=== PATIENT | male | born 1965 | race American Indian/Alaskan Native ===

== ENCOUNTER 2019-03-18 09:51 | Emergency (ER) | payer OTHER ==
[2019-03-18] MEDS ORDERED: PERCOCET 5/325 PO ONE (11:56)
--- NOTE | 2019-03-18 12:12 | Emergency Department Report ---
HPI <MARIEL BILLS Anamaria - Last Filed: 03/18/19 17:41> - HPI HPI: 53-year-old -[place] male presents to the emergency department with complaint of low back pain and left hip pain. Overall this is been going on for the past month, but it greatly worsened since this morning. He was seen at the [facility] previously for the symptoms and was placed on Tylenol and diclofenac, which he has been taking without any relief. He denies any problems with bowel or bladder, numbness or paresthesias or any neurological deficits. The pain worsens with any type of movement and it makes it difficult for him to ambulate or move around. He has a past medical history of diabetes, osteoarthritis. He has severe osteoarthritis of the knees and walks with a cane. He denies any recent trauma or injury. <BEVERLY LAZCANO S - Last Filed: 03/19/19 10:22> - General Chief Complaint: Extremity Injury, Lower Time Seen by Provider: 03/18/19 11:55 ED Past Medical Hx <MARIEL BILLS Anamaria - Last Filed: 03/18/19 17:41> - Past Medical History Previous Medical History?: Yes Hx Diabetes: Yes Additional medical history: OA, titanium plate in neck, chipped bone in hip, "bone on bone knees", depression - Surgical History Past Surgical History?: Yes Additional Surgical History: titanium plate in neck, - Social History Smoking Status: Current Some Day Smoker Substance Use Type: None <BEVERLY LAZCANO Estiven - Last Filed: 03/19/19 10:22> - Medications Home Medications: Home Medications Medication Instructions Recorded Confirmed Last Taken Type Cyclobenzaprine [Flexeril] 10 mg PO TID PRN #12 tablet 03/18/19 Unknown Rx ED Review of Systems ROS: Stated complaint: BACK PAIN Other details as noted in HPI <MARIEL BILLS - Last Filed: 03/18/19 17:41> ROS: Stated complaint: BACK PAIN Other details as noted in HPI Comment: All other systems reviewed and negative Constitutional: denies: chills, fever Respiratory: denies: cough, shortness of breath Cardiovascular: denies: chest pain, palpitations Gastrointestinal: denies: abdominal pain, nausea Genitourinary: denies: dysuria, hematuria Musculoskeletal: back pain, arthralgia. denies: joint swelling Neurological: denies: numbness, paresthesias <BEVERLY LAZCANO S - Last Filed: 03/19/19 10:22> Physical Exam - Physical Exam Vital Signs: Vital Signs 03/18/19 03/18/19 03/18/19 09:58 10:26 17:39 Temperature 97.6 F 97.5 F L 98.2 F Pulse Rate 85 85 81 Respiratory 16 16 16 Rate Blood Pressure 137/77 134/72 [Left] O2 Sat by Pulse 100 100 Oximetry <MARIEL BILLS A - Last Filed: 03/18/19 17:41> - Physical Exam Vital Signs: Vital Signs 03/18/19 03/18/19 09:58 10:26 Temperature 97.6 F 97.5 F L Pulse Rate 85 85 Respiratory 16 16 Rate Blood Pressure 137/77 [Left] O2 Sat by Pulse 100 100 Oximetry Physical Exam: GENERAL: The patient is well-developed well-nourished. HENT: Normocephalic. Atraumatic. Patient has moist mucous membranes. EYES: Extraocular motions are intact. Pupils equal reactive to light bilaterally. NECK: Supple. Trachea is midline. CHEST/LUNGS: Clear to auscultation. There is no respiratory distress noted. HEART/CARDIOVASCULAR: Regular. There is no tachycardia. There is no murmur. ABDOMEN: Abdomen is soft, nontender. Patient has normal bowel sounds. There is no abdominal distention. SKIN: Skin is warm and dry. NEURO: The patient is awake, alert, and oriented. The patient is cooperative. The patient has no focal neurologic deficits. Normal speech. MUSCULOSKELETAL: There is no tenderness or deformity. There is no evidence of acute injury. BACK: Unable to reproduce lumbar midline and left paraspinal tenderness to palpation. No obvious step-off or deformity. <BEVERLY LAZCANO S - Last Filed: 03/19/19 10:22> ED Course Vital Signs 03/18/19 03/18/19 03/18/19 09:58 10:26 17:39 Temperature 97.6 F 97.5 F L 98.2 F Pulse Rate 85 85 81 Respiratory 16 16 16 Rate Blood Pressure 137/77 134/72 [Left] O2 Sat by Pulse 100 100 Oximetry <MARIEL BILLS A - Last Filed: 03/18/19 17:41> Vital Signs 03/18/19 03/18/19 09:58 10:26 Temperature 97.6 F 97.5 F L Pulse Rate 85 85 Respiratory 16 16 Rate Blood Pressure 137/77 [Left] O2 Sat by Pulse 100 100 Oximetry <JALEESABEVERLY Jean-Baptiste - Last Filed: 03/19/19 10:22> ED Medical Decision Making - Lab Data Result diagrams: 03/18/19 12:03 03/18/19 12:03 - Radiology Data Radiology results: report reviewed, image reviewed - Medical Decision Making XRAY NEG CT NEG MEDICATED FOR PAIN AMBULATORY DC HOME WITH FOLLOW UP PER DC SUMMARY Labs 03/18/19 03/18/19 03/18/19 12:03 12:03 16:16 WBC 9.8 RBC 5.09 H Hgb 16.0 H Hct 46.5 H MCV 92 MCH 31 MCHC 34 RDW 12.5 L Plt Count 275 Lymph % (Auto) 30.7 Hughes % (Auto) 6.0 Eos % (Auto) 3.2 Baso % (Auto) 0.6 Lymph # 3.0 Hughes # 0.6 Eos # 0.3 Baso # 0.1 Seg Neutrophils % 59.5 Seg Neutrophils # 5.8 Sodium 138 Potassium 4.2 Chloride 98.3 Carbon Dioxide 27 Anion Gap 17 BUN 11 Creatinine 0.7 L Estimated GFR > 60 BUN/Creatinine Ratio 16 Glucose 226 H Calcium 9.3 Urine Color Yellow Urine Turbidity Slightly-cloudy Urine pH 5.0 Ur Specific [place] 1.038 H Urine Protein <15 mg/dl Urine Glucose (UA) >=500 Urine Ketones Tr Urine Blood Neg Urine Nitrite Neg Urine Bilirubin Neg Urine Urobilinogen < 2.0 Ur Leukocyte Esterase Neg Urine WBC (Auto) 1.0 Urine RBC (Auto) 2.0 U Epithel Cells (Auto) < 1.0 Urine Mucus 3+ Vital Signs 03/18/19 03/18/19 03/18/19 09:58 10:26 17:39 Temperature 97.6 F 97.5 F L 98.2 F Pulse Rate 85 85 81 Respiratory 16 16 16 Rate Blood Pressure 137/77 134/72 [Left] O2 Sat by Pulse 100 100 Oximetry <MARIEL BILLS A - Last Filed: 03/18/19 17:41> - Lab Data Result diagrams: 03/18/19 12:03 03/18/19 12:03 - Radiology Data Radiology results: report reviewed, image reviewed interpreted by me: X-ray of the bilateral hips, pelvis and lumbar spine do not show any fractures, dislocation, subluxation or signs of any acute process. CT LUMBAR SPINE: 03/18/2019 INDICATION / CLINICAL INFORMATION: low back pain. COMPARISON: None available. FINDINGS: CT images of the lumbar spine were obtained. Images are evaluated in the axial, coronal, and sagittal planes. There is no evidence of acute abnormality. Vertebral body height and alignment is normal. LEVEL BY LEVEL ANALYSIS: L5-S1: Mild diffuse disc bulging, slightly more pronounced on the left, with no evidence of nerve root compression or stenosis. L4-5: Minimal diffuse disc bulging. L3-4: Mild diffuse disc bulging. L2-3: Unremarkable. L1-2: Unremarkable. PARASPINAL STRUCTURES: Unremarkable. IMPRESSION: No acute abnormality. Minimal disc bulging with no evidence of stenosis or nerve root compression. - Medical Decision Making This patient presents with some left low back pain and towards the left hip that is atraumatic. He does not have any numbness, paresthesias, problems with bowel or bladder, or any neurological deficits. Labs were unremarkable. An x- ray of the bilateral hips, pelvis and lumbar spine did not show any fracture, dislocation, subluxation, or any other acute process. A CT scan was done that did not show any acute abnormality or etiology of the patient's symptoms. At first, the patient is moving very gingerly. He was given pain medication, then later a muscle relaxer, and does show improvement. He is able to move around and does not appear to be in as much discomfort. The patient is able to ambulate using his cane. Vital signs stable throughout his ED course. Patient appears safe for discharge home at this time. [facility] and I will give him a prescription for a muscle relaxer. He has also been given a referral for an orthopedist and neurosurgeon and may need an MRI in the near future. He is also been instructed to return to the emergency department with any worsening of his symptoms or any acute distress. He does not appear to have any of the emergent conditions such as cauda equina or cord compression syndrome. <BEVERLY LAZCANO - Last Filed: 03/19/19 10:22> Critical care attestation.: If time is entered above; I have spent that time in minutes in the direct care of this critically ill patient, excluding procedure time. <MARIEL BILLS - Last Filed: 03/18/19 17:41> Critical Care Time: No Critical care attestation.: If time is entered above; I have spent that time in minutes in the direct care of this critically ill patient, excluding procedure time. <BEVERLY LAZCANO S - Last Filed: 03/19/19 10:22> ED Disposition Is pt being admited?: No Does the pt Need Aspirin: No Time of Disposition: 17:43 <MARIEL BILLS A - Last Filed: 03/18/19 17:41> Is pt being admited?: No <BEVERLY LAZCANO S - Last Filed: 03/19/19 10:22> Clinical Impression: Low back pain Qualifiers: Chronicity: acute Back pain laterality: left Sciatica presence: with sciatica Sciatica Qualifiers: Laterality: left Qualified Code(s): M54.32 - Sciatica, left side Disposition: TO HOME OR SELFCARE Condition: Stable Instructions: Sciatica (ED), Lumbar Radiculopathy (ED), Back Pain (ED) Additional Instructions: Please follow-up with your primary care physician in the next few days. I am giving him a referral for a local orthopedist, Dr. Gonzalez, and a neurosurgeon, Dr. Brito, to follow up regarding your low back pain and suspected sciatica. Return to the emergency Department with any worsening of your symptoms, especially any numbness, inability to urinate, development of fever, or with any acute distress. You have been prescribed a medication that is sedating and therefore should not be taken prior to driving, working, and responsible for children and in no way should be mixed with alcohol of any quantity. Prescriptions: Cyclobenzaprine [Flexeril] 10 mg PO TID PRN #12 tablet PRN Reason: Muscle Spasm Referrals: PRIMARY CARE, [Primary Care Provider] - 2-3 Days DESTINY GONZALEZ MD [Staff Physician] - 2-3 Days AGUILAR BRITO MD [Staff Physician] - 2-3 Days
[2019-03-18 12:38] LABS: Basophils # (Auto) 0.1 K/mm3 (0.0-0.1); Basophils % (Auto) 0.6 % (0.0-1.8); Eosinophils # (Auto) 0.3 K/mm3 (0.0-0.4); Eosinophils % (Auto) 3.2 % (0.0-4.3); Hematocrit 46.5 % (35.5-45.6); Lymphocytes % (Auto) 30.7 % (13.4-35.0); Mean Corpuscular HGB Conc 34 % (32-34); Mean Corpuscular Volume 92 fl (84-94); Monocytes # (Auto) 0.6 K/mm3 (0.0-0.8); Platelet Count 275 K/mm3 (140-440); Red Blood Count 5.09 M/mm3 (3.65-5.03); Red Cell Distribution Width 12.5 % (13.2-15.2)
--- NOTE | 2019-03-18 12:44 | XRay Report ---
LUMBOSACRAL SPINE, 3 VIEWS INDICATION: low back pain. COMPARISON: None. IMPRESSION: Normal alignment. Mild degenerative disc disease is identified at L3-4. The facet joint s are unremarkable. No acute osseous or soft tissue abnormality. Signer Name: Arnoldo Bacon Jr, MD Signed: 03/18/2019 12:40 PM Workstation Name: [id number]
--- NOTE | 2019-03-18 12:44 | XRay Report ---
Bilateral hips with AP pelvis, 3 views HISTORY: Pelvic and left hip pain. IMPRESSION: Normal bone mineralization. No evidence for fracture, dislocation or diastasis. No osteon ecrosis. The soft tissues are unremarkable. Signer Name: Arnoldo Bacon Jr, MD Signed: 03/18/2019 12:39 PM Workstation Name: [id number]
[2019-03-18 13:03] LABS: BUN/Creatinine Ratio 16; Blood Urea Nitrogen 11 mg/dL (9-20); Calcium 9.3 mg/dL (8.4-10.2); Hemolysis Index 10
[2019-03-18] MEDS ORDERED: FLEXERIL PO ONE (13:57)
[2019-03-18 16:27] LABS: Bilirubin,Urine NEG (Negative); Blood,Urine NEG (Negative); Color,Urine Yellow (Yellow); Mucus,Urine 3+ /HPF; Protein,Urine <15 mg/dL mg/dL (Negative); Urobilinogen,Urine < 2.0 mg/dL (<2.0)
--- NOTE | 2019-03-18 17:38 | Cat Scan Report ---
CT LUMBAR SPINE: 03/18/2019 INDICATION / CLINICAL INFORMATION: low back pain. COMPARISON: None available. FINDINGS: CT images of the lumbar spine were obtained. Images are evaluated in the axial, coronal, and sagitta l planes. There is no evidence of acute abnormality. Vertebral body height and alignment is normal. LEVEL BY LEVEL ANALYSIS: L5-S1: Mild diffuse disc bulging, slightly more pronounced on the left, with no evidence of nerve ro ot compression or stenosis. L4-5: Minimal diffuse disc bulging. L3-4: Mild diffuse disc bulging. L2-3: Unremarkable. L1-2: Unremarkable. PARASPINAL STRUCTURES: Unremarkable. IMPRESSION: No acute abnormality. Minimal disc bulging with no evidence of stenosis or nerve root compression. All CT scans at this location are performed using dose reduction to ALARA by means of automated expos ure control. Signer Name: Irvin Self MD Signed: 03/18/2019 5:34 PM Workstation Name: [id number]
[2019-03-18 17:40] VITALS: BP 134/72
== END 2019-03-18 17:56 | disposition home or self-care (01) ==
LOC: ED 09:51
DX: M54.40 Lumbago with sciatica, unspecified side (principal); M25.552 Pain in left hip; E11.9 Type 2 diabetes mellitus without complications; M19.90 Unspecified osteoarthritis, unspecified site; F32.9 Major depressive disorder, single episode, unspecified; F17.200 Nicotine dependence, unspecified, uncomplicated; Z79.899 Other long term (current) drug therapy; Z88.0 Allergy status to penicillin
CPT/HCPCS: 36415; 72100; 72131; 73521; 80048; 81001; 85025

== ENCOUNTER 2019-05-05 10:57 | Emergency (ER) | payer OTHER ==
[2019-05-05 11:07] VITALS: BP 134/71
--- NOTE | 2019-05-05 11:16 | Event Note ---
ED Screening Note Date of service: 05/05/19 Time: 11:00 ED Screening Note: 53 y o male fell 2 days ago and cc of right hand pain and swelling This initial assessment/diagnostic orders/clinical plan/treatment(s) is/are subject to change based on patients health status, clinical progression and re- assessment by fellow clinical providers in the ED. Further treatment and workup at subsequent clinical providers discretion. Patient/guardian urged not to elope from the ED as their condition may be serious if not clinically assessed and managed. Initial orders include: XR ACC eval
--- NOTE | 2019-05-05 12:02 | XRay Report ---
RIGHT HAND 2 VIEW(S) INDICATION / CLINICAL INFORMATION: pain COMPARISON: None available. FINDINGS: Evaluation is limited by the absence of an oblique projection. BONES / JOINT(S): No acute fracture or subluxation. No significant arthritis. SOFT TISSUES: No significant abnormality. Signer Name: Lisandro Reed MD Signed: 05/05/2019 11:57 AM Workstation Name: [id number]
[2019-05-05] MEDS ORDERED: TETANUS,DIPH,PERTUSS(ACELL) VACCINE 0.5 ML SYRINGE IM ONE (13:26)
--- NOTE | 2019-05-05 13:27 | Emergency Department Report ---
ED General Adult HPI - General Chief complaint: Extremity Injury, Upper Stated complaint: RT HAND INJURY Time Seen by Provider: 05/05/19 13:24 Source: patient Mode of arrival: Ambulatory Limitations: No Limitations - History of Present Illness Initial comments: Patient complains of right hand pain and laceration after a mechanical fall 2 days ago. He states the pain seems to be worsening and causing numbness in his hand. Patient is unsure of his last tetanus. He admits to uncontrolled diabetes. He denies any fever/chills/sweats, body aches, or purulent drainage from wound. - Related Data Previous Rx's Medication Instructions Recorded Last Taken Type Cyclobenzaprine [Flexeril] 10 mg PO TID PRN #12 tablet 03/18/19 Unknown Rx Clindamycin [Clindamycin CAP] 300 mg PO Q6H 10 Days #40 capsule 05/05/19 Unknown Rx Mupirocin [Bactroban 2% OINT] 1 applic TP TID 10 Days #1 tube 05/05/19 Unknown R x Allergies Allergy/AdvReac Type Severity Reaction Status Date / Time Penicillins Allergy Unknown Verified 03/18/19 10:12 ED Review of Systems ROS: Stated complaint: RT HAND INJURY Other details as noted in HPI Comment: All other systems reviewed and negative Musculoskeletal: as per HPI Skin: as per HPI ED Past Medical Hx - Past Medical History Previous Medical History?: Yes Hx Diabetes: Yes Additional medical history: OA, titanium plate in neck, chipped bone in hip, "bone on bone knees", depression - Surgical History Past Surgical History?: Yes Additional Surgical History: titanium plate in neck, - Social History Smoking Status: Current Some Day Smoker Substance Use Type: None - Medications Home Medications: Home Medications Medication Instructions Recorded Confirmed Last Taken Type Cyclobenzaprine [Flexeril] 10 mg PO TID PRN #12 tablet 03/18/19 Unknown Rx Clindamycin [Clindamycin CAP] 300 mg PO Q6H 10 Days #40 capsule 05/05/19 Unkn own Rx Mupirocin [Bactroban 2% OINT] 1 applic TP TID 10 Days #1 tube 05/05/19 Unknown Rx ED Physical Exam - General Limitations: No Limitations General appearance: alert, in no apparent distress - Head Head exam: Present: atraumatic, normocephalic - Eye Eye exam: Present: normal appearance. Absent: scleral icterus - Respiratory Respiratory exam: Present: normal lung sounds bilaterally. Absent: respiratory distress - Cardiovascular Cardiovascular Exam: Present: regular rate, normal rhythm, normal heart sounds - Skin Skin exam: Present: warm, dry, erythema (small area noted surrounding small healing wound noted overlying 5th MCP joint. area is tender to palpation. Normal perfusion and range of motion of right hand and fingers noted) ED Course Vital Signs 05/05/19 11:00 Temperature 98.2 F Pulse Rate 91 H Respiratory 18 Rate Blood Pressure 134/71 O2 Sat by Pulse 85 Oximetry ED Medical Decision Making - Lab Data Result diagrams: 05/05/19 13:31 05/05/19 13:39 Lab Results 05/05/19 05/05/19 Range/Units 13:31 13:39 WBC 9.1 (4.5-11.0) K/mm3 RBC 4.79 (3.65-5.03) M/mm3 Hgb 15.2 (11.8-15.2) gm/dl Hct 43.5 (35.5-45.6) % MCV 91 (84-94) fl MCH 32 (28-32) pg MCHC 35 H (32-34) % RDW 11.9 L (13.2-15.2) % Plt Count 244 (140-440) K/mm3 Sodium 136 L (137-145) mmol/L Potassium 4.7 (3.6-5.0) mmol/L Chloride 97.7 L (98-107) mmol/L Carbon Dioxide 26 (22-30) mmol/L Anion Gap 17 mmol/L BUN 10 (9-20) mg/dL Creatinine 0.9 (0.8-1.5) mg/dL Estimated GFR > 60 ml/min BUN/Creatinine Ratio 11 % Glucose 287 H (75-100) mg/dL Calcium 9.3 (8.4-10.2) mg/dL - Radiology Data Radiology results: report reviewed RIGHT HAND 2 VIEW(S) INDICATION / CLINICAL INFORMATION: pain COMPARISON: None available. FINDINGS: Evaluation is limited by the absence of an oblique projection. BONES / JOINT(S): No acute fracture or subluxation. No significant arthritis. - Medical Decision Making Patient with history of diabetes here today with complaints of right hand pain after a laceration from fall 2 days ago. He denies any fever/chills/body aches. He states the pain appears to be worsening. He denies any drainage from the wound. X-rays is without acute abnormalities. CBC is WNL. Patient is afebrile and nontoxic a cardiac. We'll treat for cellulitis. Tdap Updated. Him and follow with primary care and 2-5 days. Discussed strict return precautions in great detail with patient who states understanding. Critical care attestation.: If time is entered above; I have spent that time in minutes in the direct care of this critically ill patient, excluding procedure time. ED Disposition Clinical Impression: Cellulitis of right hand Disposition: DC-01 TO HOME OR SELFCARE Is pt being admited?: No Condition: Stable Instructions: Cellulitis (ED) Additional Instructions: Please follow-up with your primary care doctor in 3 days. Return to the emergenc y room if there are any new or worsening symptoms. Prescriptions: Mupirocin [Bactroban 2% OINT] 1 applic TP TID 10 Days #1 tube Clindamycin [Clindamycin CAP] 300 mg PO Q6H 10 Days #40 capsule Referrals: [facility] [Primary Care Provider] - 3-5 Days Forms: Work/School Release Form(ED)
[2019-05-05 13:47] LABS: Hematocrit 43.5 % (35.5-45.6); Hemoglobin 15.2 gm/dl (11.8-15.2); Mean Corpuscular HGB Conc 35 % (32-34); Mean Corpuscular Volume 91 fl (84-94); Platelet Count 244 K/mm3 (140-440); Red Blood Count 4.79 M/mm3 (3.65-5.03); Red Cell Distribution Width 11.9 % (13.2-15.2)
[2019-05-05 14:21] LABS: BUN/Creatinine Ratio 11; Blood Urea Nitrogen 10 mg/dL (9-20); Calcium 9.3 mg/dL (8.4-10.2); Hemolysis Index 3
== END 2019-05-05 14:45 | disposition home or self-care (01) ==
LOC: ED 10:57
DX: L03.113 Cellulitis of right upper limb (principal); E11.9 Type 2 diabetes mellitus without complications; F17.200 Nicotine dependence, unspecified, uncomplicated
CPT/HCPCS: 36415; 80048; 85027; 90471; 90715

== ENCOUNTER 2019-11-14 09:42 | Emergency (ER) | payer OTHER ==
[2019-11-14 10:47] VITALS: BP 125/88
[2019-11-14] MEDS ORDERED: KETOROLAC 30 MG/1 ML INJ IV ONE (10:48)
[2019-11-14] MEDS ORDERED: ONDANSETRON 4 MG/2 ML INJ IV ONE (10:48)
[2019-11-14 11:20] LABS: Basophils # (Auto) 0.1 K/mm3 (0.0-0.1); Basophils % (Auto) 0.9 % (0.0-1.8); Eosinophils # (Auto) 0.3 K/mm3 (0.0-0.4); Eosinophils % (Auto) 2.8 % (0.0-4.3); Hemoglobin 15.1 gm/dl (11.8-15.2); Lymphocytes # (Auto) 3.3 K/mm3 (1.2-5.4); Lymphocytes % (Auto) 30.4 % (13.4-35.0); Monocytes # (Auto) 0.6 K/mm3 (0.0-0.8); Monocytes % (Auto) 5.6 % (0.0-7.3)
[2019-11-14 11:25] LABS: Mean Corpuscular HGB Conc 34 % (32-34); Mean Corpuscular Volume 90 fl (84-94); Platelet Count 222 K/mm3 (140-440); Red Blood Count 4.89 M/mm3 (3.65-5.03); Red Cell Distribution Width 11.9 % (13.2-15.2)
--- NOTE | 2019-11-14 11:46 | Cat Scan Report ---
CT head/brain wo con INDICATION / CLINICAL INFORMATION: 54 years Male; right sided headache. TECHNIQUE: Routine CT head without contrast. All CT scans at this location are performed using CT dos e reduction for ALARA by means of automated exposure control. COMPARISON: 10/29/2019; MRI - 10/30/2019 FINDINGS: BRAIN / INTRACRANIAL CONTENTS: No acute hemorrhage, mass effect, midline shift, hydrocephalus, or acu te, large territorial infarct. No chronic infarct or atrophy appreciated. No significant white matter abnormality. CRANIOCERVICAL JUNCTION: No significant abnormality. ORBITS: No significant abnormality of visualized orbits. SINUSES / MASTOIDS: There is moderate opacification of the ethmoids bilaterally. Some component of po lypoid disease/mucous retention cysts suggested in the nasal airway, as well as in the right maxillar y antrum. There is also mild to moderate mucosal thickening in the right sphenoid sinus, with air-flu id level noted. ADDITIONAL FINDINGS: None. IMPRESSION: 1. No focal mass, hemorrhage, hydrocephalus, or acute, large territorial infarct. 2. Fairly significant sinus disease noted, with an acute component suggested in the right sphenoid si nus. Signer Name: Randy Lindsay MD, III Signed: 11/14/2019 11:42 AM Workstation Name: [id number]
[2019-11-14 12:28] LABS: BUN/Creatinine Ratio 13; Blood Urea Nitrogen 10 mg/dL (9-20); Calcium 9.2 mg/dL (8.4-10.2); Hemolysis Index 4
--- NOTE | 2019-11-14 12:45 | Emergency Department Report ---
ED General Adult HPI - General Chief complaint: Headache Stated complaint: HEADACHE Time Seen by Provider: 11/14/19 10:41 Source: patient Mode of arrival: Ambulatory Limitations: No Limitations - History of Present Illness Initial comments: Patient is a 54-year-old F [place] male with a past medical history of diabetes and also recent admission for lacunar infarct who is presenting with right-sided headache since this morning. Patient states he has had some mild congestion for the last several days with no cough fever however he woke up this morning had 8 out of 10 pain in the right side of his head as well as his nose. Patient states he feels like someone punched him in the face overnight. He denies any new weakness to his arms or legs. Patient is on aspirin therapy currently for recent CVA. Patient states he has been compliant with all his medications. Severity scale (0 -10): 7 - Related Data Home Medications Medication Instructions Recorded Confirmed Last Taken Etodolac [Lodine] 400 mg PO BID PRN 10/30/19 10/30/19 10/29/19 11:00 10 mg FLUoxetine HCL [FLUoxetine] 60 mg PO QAM 10/30/19 10/30/19 10/29/19 11:00 60 mg Hydroxyzine HCl [hydrOXYzine] 50 mg PO BID PRN 10/30/19 10/30/19 10/29/19 11:00 Previous Rx's Medication Instructions Recorded Last Taken Type Aspirin 325 mg PO QHS #30 tablet 10/31/19 Unknown Rx Aspirin [Aspirin BABY CHEW TAB] 81 mg PO QDAY #30 tab.chew 10/31/19 Unknown Rx AtorvaSTATin [Lipitor] 40 mg PO QHS #30 tablet 10/31/19 Unknown Rx Cyclobenzaprine [Flexeril 10 MG 10 mg PO TID PRN #12 tablet 10/31/19 Unknown Rx TAB] Gabapentin 400 mg PO TID #90 cap 10/31/19 Unknown Rx Levemir Flextouch 26 units SUB-Q BID 30 Days 10/31/19 Unknown Rx Losartan 25 mg PO QDAY #30 10/31/19 Unknown Rx Niacin ER [Niaspan ER] 1,000 mg PO QHS #30 tablet 10/31/19 Unknown Rx Spironolactone [Aldactone] 25 mg PO QDAY #30 tablet 10/31/19 Unknown Rx carvediloL [Coreg] 6.25 mg PO BID #60 tablet 10/31/19 Unknown Rx glipiZIDE [Glucotrol] 5 mg PO BID #60 10/31/19 Unknown Rx Azithromycin [Zithromax Z-KASSIDY] 250 mg PO DAILY #6 tablet 11/14/19 Unknown Rx Fluticasone [Flonase] 1 spray NS QDAY #1 bottle 11/14/19 Unknown Rx traMADoL [Ultram] 50 mg PO Q6HR PRN #12 tablet 11/14/19 Unknown Rx Allergies Allergy/AdvReac Type Severity Reaction Status Date / Time Penicillins Allergy Unknown Verified 03/18/19 10:12 ED Review of Systems ROS: Stated complaint: HEADACHE Other details as noted in HPI Comment: All other systems reviewed and negative ED Past Medical Hx - Past Medical History Previous Medical History?: Yes Hx Congestive Heart Failure: No Hx Diabetes: Yes Hx Asthma: No Hx COPD: No Additional medical history: OA, titanium plate in neck, chipped bone in hip, "bone on bone knees", depression - Surgical History Past Surgical History?: Yes Additional Surgical History: titanium plate in neck, - Social History Smoking Status: Never Smoker Substance Use Type: None - Medications Home Medications: Home Medications Medication Instructions Recorded Confirmed Last Taken Type Etodolac [Lodine] 400 mg PO BID PRN 10/30/19 10/30/19 10/29/19 11:00 History 10 mg FLUoxetine HCL [FLUoxetine] 60 mg PO QAM 10/30/19 10/30/19 10/29/19 11:00 History 60 mg Hydroxyzine HCl [hydrOXYzine] 50 mg PO BID PRN 10/30/19 10/30/19 10/29/19 11:00 History Aspirin 325 mg PO QHS #30 tablet 10/31/19 Unknown Rx Aspirin [Aspirin BABY CHEW TAB] 81 mg PO QDAY #30 tab.chew 10/31/19 Unknown Rx AtorvaSTATin [Lipitor] 40 mg PO QHS #30 tablet 10/31/19 Unknown Rx Cyclobenzaprine [Flexeril 10 MG 10 mg PO TID PRN #12 tablet 10/31/19 Unknown Rx TAB] Gabapentin 400 mg PO TID #90 cap 10/31/19 Unknown Rx Levemir Flextouch 26 units SUB-Q BID 30 Days 10/31/19 Unknown Rx Losartan 25 mg PO QDAY #30 10/31/19 Unknown Rx Niacin ER [Niaspan ER] 1,000 mg PO QHS #30 tablet 10/31/19 Unknown Rx Spironolactone [Aldactone] 25 mg PO QDAY #30 tablet 10/31/19 Unknown Rx carvediloL [Coreg] 6.25 mg PO BID #60 tablet 10/31/19 Unknown Rx glipiZIDE [Glucotrol] 5 mg PO BID #60 10/31/19 Unknown Rx Azithromycin [Zithromax Z-KASSIDY] 250 mg PO DAILY #6 tablet 11/14/19 Unknown Rx Fluticasone [Flonase] 1 spray NS QDAY #1 bottle 11/14/19 Unknown Rx traMADoL [Ultram] 50 mg PO Q6HR PRN #12 tablet 11/14/19 Unknown Rx ED Physical Exam - General Limitations: No Limitations General appearance: alert, in no apparent distress - Head Head exam: Present: atraumatic, normocephalic - Eye Eye exam: Present: normal appearance, PERRL, EOMI - ENT ENT exam: Present: mucous membranes moist - Neck Neck exam: Present: normal inspection, full ROM. Absent: meningismus - Respiratory Respiratory exam: Present: normal lung sounds bilaterally. Absent: respiratory distress, wheezes, rales, rhonchi - Cardiovascular Cardiovascular Exam: Present: regular rate, normal rhythm, normal heart sounds. Absent: systolic murmur, diastolic murmur, rubs, gallop - GI/Abdominal GI/Abdominal exam: Present: soft, normal bowel sounds. Absent: distended, tenderness, guarding - Rectal Rectal exam: Present: deferred - Extremities Exam Extremities exam: Present: normal inspection - Back Exam Back exam: Present: normal inspection - Neurological Exam Neurological exam: Present: alert, oriented X3 - Psychiatric Psychiatric exam: Present: normal affect, normal mood - Skin Skin exam: Present: warm, dry, intact, normal color. Absent: rash ED Course Vital Signs 11/14/19 11/14/19 11/14/19 09:47 10:43 11:03 Temperature 97.6 F 98.4 F Pulse Rate 85 88 Respiratory 18 14 18 Rate Blood Pressure 132/81 Blood Pressure 125/88 [Right] O2 Sat by Pulse 97 97 Oximetry ED Medical Decision Making - Lab Data Result diagrams: 11/14/19 11:20 11/14/19 10:48 - Radiology Data [facility] [address] [place] [address] Cat Scan Report Signed Patient: JOSH SINGH III#: [id number] : 1965 Acct:[id number] Age/Sex: 54 / M ADM Date: 11/14/19 Loc: ED Attending Dr: Ordering Physician: TRAVIS IZQUIERDO MD Date of Service: 11/14/19 Procedure(s): CT head/brain wo con Accession Number(s): [id number] cc: TRAVIS IZQUIERDO MD CT head/brain wo con INDICATION / CLINICAL INFORMATION: 54 years Male; right sided headache. TECHNIQUE: Routine CT head without contrast. All CT scans at this location are performed using CT dose reduction for ALARA by means of automated exposure control. COMPARISON: 10/29/2019; MRI - 10/30/2019 FINDINGS: BRAIN / INTRACRANIAL CONTENTS: No acute hemorrhage, mass effect, midline shift, hydrocephalus, or acute, large territorial infarct. No chronic infarct or atrophy appreciated. No significant white matter abnormality. CRANIOCERVICAL JUNCTION: No significant abnormality. ORBITS: No significant abnormality of visualized orbits. SINUSES / MASTOIDS: There is moderate opacification of the ethmoids bilaterally. Some component of polypoid disease/mucous retention cysts suggested in the nasal airway, as well as in the right maxillary antrum. There is also mild to moderate mucosal thickening in the right sphenoid sinus, with air-fluid level noted. ADDITIONAL FINDINGS: None. IMPRESSION: 1. No focal mass, hemorrhage, hydrocephalus, or acute, large territorial infarct. 2. Fairly significant sinus disease noted, with an acute component suggested in the right sphenoid sinus. Signer Name: Randy Lindsay MD, III Signed: 11/14/2019 11:42 AM Workstation Name: [id number] - Medical Decision Making Patient is a 54-year-old F [place] male who is presenting with headache. Patient was admitted for strokelike symptoms approximately a week and a half ago. Patient states he did not have a headache at that time but only weakness. Patient states that he has a pressure-like pounding sensation to the right side of his head. CT of the head shows no intracranial bleed but he does show that he has a sphenoid sinusitis which appears acute. This does match the patient's symptoms. Patient will be started on antibiotics and given pain medication will be discharged home. Patient be started on azithromycin since he is allergic to penicillin and cannot take Augmentin Critical care attestation.: If time is entered above; I have spent that time in minutes in the direct care of this critically ill patient, excluding procedure time. ED Disposition Clinical Impression: Acute sinusitis Qualifiers: Sinusitis location: sphenoidal Recurrence: non-recurrent Qualified Code(s): J01.30 - Acute sphenoidal sinusitis, unspecified Disposition: TO HOME OR SELFCARE Is pt being admited?: No Does the pt Need Aspirin: No Condition: Stable Instructions: Acute Bacterial Rhinosinusitis (ED) Referrals: SAIRA GOODMAN MD [Primary Care Provider] - 3-5 Days Time of Disposition: 12:45
== END 2019-11-14 13:22 | disposition home or self-care (01) ==
LOC: ED 09:42
DX: J01.90 Acute sinusitis, unspecified (principal); E11.9 Type 2 diabetes mellitus without complications; Z98.890 Other specified postprocedural states; Z88.0 Allergy status to penicillin; Z79.82 Long term (current) use of aspirin; Z79.899 Other long term (current) drug therapy
CPT/HCPCS: 36415; 70450; 80048; 85025; 96374; 96375; 99284; J1885; J2405; 82962